=== PATIENT | male | born 1995 | race Caucasian/White ===

== ENCOUNTER 2024-10-24 11:44 | Emergency (ER) | payer OTHER, SELFPAY ==
[2024-10-24 12:02] VITALS: BP 139/84; PULSE 87; RESP 16; TEMP 36.9; O2SAT 97; BMI 26.5
--- NOTE | 2024-10-24 12:42 | ED_ITS ---
HPI - URI/Sore Throat <Mohini Lange PA-C - Last Filed: 10/24/24 13:57> General Chief Complaint: Upper Respiratory Symptoms Stated Complaint: Severe cold/flu, bloody mucus Time Seen by Provider: 10/24/24 12:42 Source: patient History of Present Illness HPI Narrative: Mr. Reyes is a very pleasant 28-year-old male with no reported past medical history presents to the emergency department for cough, fatigue, fever, constipation x 5 days. Patient is active duty [employer], commercial pilot. Returned from [place] ago on Saturday. 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 On Saturday he developed productive cough with clear sputum, night sweats, fatigue, generalized body aches. He also has been constipated for a few days, had his 1st bowel movement today which was diarrhea. He has been taking Mucinex, NyQuil. Cough became more dry but then last night he coughed up some blood-tinged sputum which prompted his emergency department arrival. Reports that today he is actually feeling much improved with decreased fevers, body aches and fatigue, and last night was the 1st night he slept through the night however because of the blood-tinged sputum he wanted to be evaluated. [place] [employer] [place] 24 hours off work. Only medication this morning was Claritin. He denies history of smoking or drugs. No surgical history except ear tubes as a child. Related Data Previous Rx's Medication Instructions Recorded doxycycline hyclate 100 mg capsule 100 mg PO BID 5 days #10 caps 10/24/24 Allergies Allergy/AdvReac Type Severity Reaction Status Date / Time No Known Drug Allergies Allergy Verified 10/24/24 12:07 Review of Systems <Mohini Lange PA-C - Last Filed: 10/24/24 13:57> Review of Systems ROS Unobtainable: All systems reviewed & are unremarkable except as noted in HPI and below Patient History <Mohini Lange PA-C - Last Filed: 10/24/24 13:57> Social History Smoking Status: Current some day smoker Smoking Status: Current some day smoker Exam <Mohini Lange PA-C - Last Filed: 10/24/24 13:57> Narrative Exam Narrative: GENERAL: 28 year old patient appears stated age. Well-developed athletic patient, in no acute distress. HEAD: Atraumatic. Normocephalic. EYES: PERRL. Extraocular motions intact. No scleral icterus. No injection or drainage. ENT: Normal TMs bilaterally, slight air-fluid level behind left TM but no erythema or bulging. Nose without bleeding, purulent drainage. Throat with mild posterior oropharyngeal erythema, no tonsillar exudates or tonsillar hypertrophy, uvula midline, oropharynx patent. NECK: Trachea midline. Cervical ROM intact. CARDIOVASCULAR: Regular rate and rhythm. RESPIRATORY: ?Nonlabored respirations. ?Speaking in clear, full sentences. ?Clear to auscultation. Breath sounds equal bilaterally. No wheezes, rales, or rhonchi. ?Frequent dry cough. GASTROINTESTINAL: Abdomen soft, non-tender, nondistended. Normal bowel sounds. EXTREMITIES: No edema or joint tenderness. NEURO: AOx3. ?Clear speech. ?Moves all 4 extremities appropriately. SKIN: No rash or erythema of visible areas Initial Vital Signs Initial Vital Signs: Vital Signs Temperature 98.4 F 10/24/24 12:02 Pulse Rate 87 10/24/24 12:02 Respiratory Rate 16 10/24/24 12:02 Blood Pressure 139/84 10/24/24 12:02 Pulse Oximetry 97 10/24/24 12:02 Oxygen Delivery Method Room Air 10/24/24 12:02 <Vu Argueta MD - Last Filed: 10/24/24 20:56> Initial Vital Signs Initial Vital Signs: Vital Signs Temperature 98.4 F 10/24/24 12:02 Pulse Rate 87 10/24/24 12:02 Respiratory Rate 16 10/24/24 12:02 Blood Pressure 139/84 10/24/24 12:02 Pulse Oximetry 97 10/24/24 12:02 Oxygen Delivery Method Room Air 10/24/24 12:02 Course <Mohini Lange PA-C - Last Filed: 10/24/24 13:57> Orders Ordered: ED Orders 10/24/24 12:56 XR chest 2V Stat 10/24/24 13:02 Covid-19 + FLU A/B + RSV - PCR Stat Vital Signs Vital signs: Vital Signs - 8 hr 10/24/24 14:15 Pulse Rate 71 Respiratory Rate 16 Blood Pressure 130/80 Pulse Oximetry 97 Oxygen Delivery Method Room Air <Vu Argueta MD - Last Filed: 10/24/24 20:56> Orders Ordered: ED Orders 10/24/24 12:56 XR chest 2V Stat 10/24/24 13:02 Covid-19 + FLU A/B + RSV - PCR Stat Vital Signs Vital signs: Vital Signs - 8 hr 10/24/24 14:15 Pulse Rate 71 Respiratory Rate 16 Blood Pressure 130/80 Pulse Oximetry 97 Oxygen Delivery Method Room Air MDM - URI/Sore Throat <Mohini Lange PA-C - Last Filed: 10/24/24 13:57> Lab Data Labs: Lab Results 10/24/24 Range/Units 13:02 SARS-CoV-2 (PCR) Negative (Negative) Influenza A (RT-PCR) Flu a negative (NEGATIVE) Influenza B (RT-PCR) Flu b positive H (NEGATIVE) RSV (PCR) Negative (Negative) MDM Narrative Medical decision making narrative: 28-year-old male with no reported past medical history presents to the emergency department for cough, fatigue, fever, constipation x 5 days. Differential diagnosis includes but is not limited to bronchitis, pneumonia, viral URI, etc. On exam patient is in no acute distress, nontoxic appearing, vital signs within normal limits. Abdomen soft and nontender. Mild posterior oropharyngeal eryt jovanny. No wheezing or abnormal breath sounds. Given history of cough, fever, blood-tinged sputum, we will proceed with chest x-ray and viral swab. Patient declines need for any medication at this time. He was provided with water bottle and encouraged to hydrate. Viral swab positive for influenza B. Chest x-ray reveals mild right lower lobe posterior segmental opacification, which may represent pneumonia. We will treat patient with doxycycline b.i.d. x5 days for community-acquired pneumonia. Recommended increase hydration, ibuprofen/Tylenol for pain. He declines the need for cough medicine. Discussed follow up with PCP, repeat chest x-ray in 1- 2 months, strict ED return precautions were discussed. He was provided with a work note. He verbalized understanding all information is agreeable to this plan. He is stable for discharge home. <Vu Argueta MD - Last Filed: 10/24/24 20:56> Lab Data Labs: Lab Results 10/24/24 Range/Units 13:02 SARS-CoV-2 (PCR) Negative (Negative) Influenza A (RT-PCR) Flu a negative (NEGATIVE) Influenza B (RT-PCR) Flu b positive H (NEGATIVE) RSV (PCR) Negative (Negative) Discharge Plan Departure Patient Disposition: Home Clinical Impression: Influenza B Pneumonia Qualifiers: Pneumonia type: due to unspecified organism Laterality: right Lung location: lower lobe of lung Qualified Code(s): J18.9 - Pneumonia, unspecified organism Instructions: DI for Pneumonia -- Adult, DI for Influenza -- Adult Activity Restrictions/Additional Instructions: Dear Mr. Reyes, Thank you for coming to the emergency department. Today your chest x-ray revealed a right lower lobe pneumonia. You also tested positive for influenza B. You have been prescribed a 5 day course of antibiotics to complete to treat the lung infection. It is very important that you also rest, hydrate, use ibuprofen/acetaminophen if needed for pain. Please take Ibuprofen (Motrin/Advil) or Acetaminophen (Tylenol) for pain. These are available over the counter. You may take Ibuprofen 600 mg every 8 hours with food for pain. You may also take Acetaminophen 650 mg every 4-6 hours for pain. Do not exceed 3000 mg of Tylenol a day as this can cause liver damage. Do not drink alcohol with either of these medications. 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 We recommend that you have repeat chest x-ray in 1-2 months to document resolution of the pneumonia. Please follow up with your primary care doctor within the next 2-3 days for ER follow-up. (If you do not have a PCP you can call [phone]. ?to schedule an appointment with an [facility] Primary Care Provider) IF YOU DEVELOP ANY NEW OR WORSENING SYMPTOMS, RETURN TO THE ER! Please read the attached instructions, they highlight more specific treatments and interventions for you at home. Thank you for letting me participate in your care, Mohini Lange PA-C Prescriptions: New doxycycline hyclate 100 mg capsule 100 mg PO BID 5 Days Qty: 10 0RF Referrals: Provider,Alberto WILKINS [Primary Care Provider] - Stand Alone Forms: Patient Portal/API/Survey, Work Release Note ED Sign-out <Vu Argueta MD - Last Filed: 10/24/24 20:56> Cosign ED Attending Cosignature Attestation: I was immediately available in the department for consultation. This documentation has been reviewed and I agree with assessment and plan. Supervised by Vu Argueta MD
--- NOTE | 2024-10-24 12:56 | DI.RAD.S_ITS ---
PROCEDURE: XR CHEST 2V INDICATIONS: productive cough; fever TECHNIQUE: 2 views of the chest were acquired. COMPARISON: None. FINDINGS: Surgical changes and devices: None. Lungs and pleura: Mild right lower lobe posterior segmental opacification. No pleural effusions or pneumothorax. Mediastinum: Mediastinal contours are normal. Heart size is normal. Bones and chest wall: No suspicious bony abnormalities. Soft tissues appear unremarkable. IMPRESSION: Mild right lower lobe posterior segmental opacification, which may represent pneumonia. Dictated by: Ronald Hein M.D. on 10/24/2024 at 12:15 Approved by: Ronald Hein M.D. on 10/24/2024 at 12:16
[2024-10-24 13:44] LABS: Influenza A - CEPHEID Flu A NEGATIVE (NEGATIVE); Influenza B - CEPHEID Flu B POSITIVE (NEGATIVE); Respiratory Syncytial Virus Negative (Negative)
[2024-10-24 13:50] LABS: COVID-19 CEPHEID 4-PLEX PCR Negative (Negative)
[2024-10-24 14:15] VITALS: BP 130/80; PULSE 71; RESP 16; O2SAT 97
== END 2024-10-24 14:13 | disposition home or self-care (01) ==
PROVIDERS: Emergency Provider Physician Assistant
DX: J18.9 Pneumonia, unspecified organism (principal); J10.1 Influenza due to other identified influenza virus with other respiratory manifestations; K59.00 Constipation, unspecified; F17.200 Nicotine dependence, unspecified, uncomplicated
CPT/HCPCS: 0241U; 71046; 99282; 99283